=== PATIENT | male | born 1950 | race Caucasian/White ===

== ENCOUNTER 2021-05-31 15:09 | Emergency (ER) | payer OTHER ==
--- NOTE | 2021-05-31 15:19 | ERPHSYRPT ---
- History of Present Illness Time Seen by Provider: 05/31/21 15:14 Source: patient, EMS Exam Limitations: clinical condition Physician History: pt is a leukemia pt recently requiring transfusion for his chem effects and is also incarcerated. He became unresponsive with bradycardia down to 20s by palp pulse only =- no monitor and was given IV atropine and called ambulance. Pt now has HR around 100 and pulse Ox is in 90s on mask and pt alert and following commands. No complaints, but appears short of breath. has rales suggesting CHF. Timing/Duration: today Activities at Onset: none Quality: other (no pain) Chest Pain Radiation: no radiation Severity of Pain-Max: none Severity of Pain-Current: none Nitro Today/Relief: no nitro taken today Aspirin Treatment Today: no aspirin today Associated Symptoms: shortness of breath Allergies/Adverse Reactions: No Known Drug Allergies Allergy (Unverified 05/31/21 15:40) Home Medications: No Reportable Medications [No Reported Medications] 05/31/21 [History] - Review of Systems Constitutional: No Fever, No Chills Eyes: No Symptoms Ears, Nose, & Throat: No Symptoms Respiratory: Dyspnea, No Cough Cardiac: No Chest Pain, No Edema, No Syncope Abdominal/Gastrointestinal: No Abdominal Pain, No Nausea, No Vomiting, No Diarrhea Genitourinary Symptoms: No Dysuria Musculoskeletal: No Back Pain, No Neck Pain Skin: No Rash Neurological: No Dizziness, No Focal Weakness, No Sensory Changes Psychological: No Symptoms Endocrine: No Symptoms Hematologic/Lymphatic: No Symptoms Immunological/Allergic: No Symptoms All Other Systems: Reviewed and Negative - Past Medical History Pertinent Past Medical History: Yes 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 - Nursing Vital Signs Nursing Vital Signs: Initial Vital Signs Temperature 97.5 F 05/31/21 15:10 Pulse Rate 102 H 05/31/21 15:10 Respiratory Rate 24 05/31/21 15:10 O2 Sat by Pulse Oximetry 95 05/31/21 15:10 Pain Scale Pain Intensity 0 - Physical Exam General Appearance: no apparent distress, alert Eye Exam: PERRL/EOMI, eyes nml inspection Ears, Nose, Throat Exam: normal ENT inspection, moist mucous membranes Neck Exam: normal inspection, non-tender, supple Respiratory Exam: respiratory distress, accessory muscle use, crackles/rales Cardiovascular Exam: regular rate/rhythm, normal heart sounds, No edema Gastrointestinal/Abdomen Exam: soft, No tenderness, No mass Rectal Exam: deferred Back Exam: normal inspection, No CVA tenderness, No vertebral tenderness Extremity Exam: normal inspection, normal range of motion Neurologic Exam: alert, oriented x 3, cooperative, normal mood/affect, nml cerebellar function, sensation nml, No motor deficits Skin Exam: normal color, warm, dry Lymphatic Exam: No adenopathy SpO2 Interpretation: hypoxic SpO2: 94 O2 Delivery: Non-rebreather - Course Nursing assessment & vital signs reviewed: Yes EKG Interpreted by Me: Sinus Tach, 1st degree AV Block, Non-specific ST Changes - Radiology Exams Chest X-ray Interpretation: Reviewed by me, Infiltrates, Other (enlarged heart/CHF/pericadial effusion?) Ordered Tests: Active Orders 24 hr Category Date Time Status Patient Support Assistant STAT Care 05/31/21 15:43 Active EKG-ER Only STAT Care 05/31/21 15:23 Active IV Insertion STAT Care 05/31/21 15:23 Active Pulse Oximetry (ED) STAT Care 05/31/21 15:25 Active CHEST 1 VIEW (PORTABLE) Stat Exams 05/31/21 16:36 Taken CBC W DIFF Stat Lab 05/31/21 15:35 Completed CMP Stat Lab 05/31/21 15:35 Completed INFLUENZA A+B BHAVIN Stat Lab 05/31/21 15:26 Completed Lactic Acid Stat Lab 05/31/21 15:47 Completed Manual Differential NC Stat Lab 05/31/21 15:35 Completed NT PRO BNP Stat Lab 05/31/21 15:42 Completed TROPONIN Q3H Lab 05/31/21 15:35 Completed TROPONIN Q3H Lab 05/31/21 18:30 Ordered TROPONIN Q3H Lab 05/31/21 21:30 Ordered TROPONIN Q3H Lab 06/01/21 00:30 Ordered TROPONIN Q3H Lab 06/01/21 03:30 Ordered UA W/RFX UR CULTURE Stat Lab 05/31/21 15:24 Ordered Respiratory Therapy Assessment DAILY RT 05/31/21 15:38 Active Medication Summary Generic Name Dose Route Start Last Admin Trade Name Freq PRN Reason Stop Dose Admin Sodium Chloride 1,000 mls @ 100 mls/hr 05/31/21 15:30 Sodium Chloride 0.9% 1000 Ml IV 06/30/21 15:29 .Q10H DAVID Discontinued Medications Generic Name Dose Route Start Last Admin Trade Name Freq PRN Reason Stop Dose Admin Albuterol/Ipratropium 3 ml 05/31/21 15:25 05/31/21 15:34 Ipratropium/Albuterol Sulfate 3 Ml Ampul.Neb IH 05/31/21 15:26 3 ml STAT ONE Administration Albuterol/Ipratropium Confirm 05/31/21 15:33 Ipratropium/Albuterol Sulfate 3 Ml Ampul.Neb Administered 05/31/21 15:34 Dose 3 ml IH .STK-MED ONE Furosemide 20 mg 05/31/21 15:29 Furosemide 100 Mg/10 Ml Vial IV 05/31/21 15:30 STAT ONE Dopamine HCl/Dextrose 250 mls @ 0 mls/hr 05/31/21 15:42 Dopamine 400 Mg/D5w 250ml Premix IV 06/30/21 15:41 .Q0M PRN SEVERE HYPOTENSION Protocol 5 MCG/KG/MIN Dopamine HCl/Dextrose Confirm 05/31/21 15:54 Dopamine 400 Mg/D5w 250ml Premix Administered 05/31/21 15:55 Dose 250 mls @ ud IV .STK-MED ONE Lab/Rad Data: Laboratory Result Diagrams 05/31/21 15:35 05/31/21 15:35 Laboratory Results 05/31/21 05/31/21 05/31/21 Range/Units 15:47 15:42 15:35 WBC (4.0-10.5) K/mm3 RBC (4.1-5.6) M/mm3 Hgb (12.5-18.0) gm/dl Hct (42-50) % MCV (78-100) fl MCH (26-32) pg MCHC (32-36) g/dl RDW (11.5-14.0) % Plt Count (150-450) K/mm3 MPV (7.5-11.0) fl Sodium (137-145) mmol/L Potassium (3.5-5.1) mmol/L Chloride (98-107) mmol/L Carbon Dioxide (22-30) mmol/L Anion Gap (5-15) MEQ/L BUN (9-20) mg/dL Creatinine (0.66-1.25) mg/dL Estimated GFR ML/MIN Glucose (74-106) mg/dL Lactic Acid 6.0 H (0.4-2.0) Calcium (8.4-10.2) mg/dL Total Bilirubin (0.2-1.3) mg/dL AST (17-59) U/L ALT (0-50) U/L Alkaline Phosphatase (38-126) U/L Troponin I 0.056 H* (0.000-0.034) ng/mL NT-Pro-B Natriuret Pep 20083 H (0-900) pg/mL Serum Total Protein (6.3-8.2) g/dL Albumin (3.5-5.0) g/dL Influenza Type A Ag (NEGATIVE) Influenza Type B Ag (NEGATIVE) 05/31/21 05/31/21 05/31/21 Range/Units 15:35 15:35 15:26 WBC 4.7 (4.0-10.5) K/mm3 RBC 2.51 L (4.1-5.6) M/mm3 Hgb 8.7 L (12.5-18.0) gm/dl Hct 27.1 L (42-50) % MCV 108.0 H (78-100) fl MCH 34.7 H (26-32) pg MCHC 32.1 (32-36) g/dl RDW 23.2 H (11.5-14.0) % Plt Count 134 L (150-450) K/mm3 MPV 10.6 (7.5-11.0) fl Sodium 138 (137-145) mmol/L Potassium 5.3 H (3.5-5.1) mmol/L Chloride 108 H (98-107) mmol/L Carbon Dioxide 17 L (22-30) mmol/L Anion Gap 17.8 H (5-15) MEQ/L BUN 46 H (9-20) mg/dL Creatinine 3.52 H (0.66-1.25) mg/dL Estimated GFR 18.4 ML/MIN Glucose 116 H (74-106) mg/dL Lactic Acid (0.4-2.0) Calcium 7.8 L (8.4-10.2) mg/dL Total Bilirubin 0.80 (0.2-1.3) mg/dL AST 59 (17-59) U/L ALT 70 H (0-50) U/L Alkaline Phosphatase 52 (38-126) U/L Troponin I (0.000-0.034) ng/mL NT-Pro-B Natriuret Pep (0-900) pg/mL Serum Total Protein 6.5 (6.3-8.2) g/dL Albumin 3.2 L (3.5-5.0) g/dL Influenza Type A Ag NEGATIVE (NEGATIVE) Influenza Type B Ag NEGATIVE (NEGATIVE) - Progress Progress: improved, re-examined Air Movement: good Progress Note: 05/31/21 17:13 discussed with pt and Dr. Contreras and all agree for transfer to [facility] for definitive eval of heart and care , so that pt can decide next steps. Blood Culture(s) Obtained: No Antibiotics given: No Discussed with DrAn: Other (Dr. Dodge [facility]) Will see patient in: ED Counseled pt/family regarding: lab results, diagnosis, need for follow-up, rad results - Departure Departure Disposition: Transfer Clinical Impression: leukemia under Tx, CHF/pericardial enlargment Condition: Serious Critical Care Time: Yes Critical Care Time(excluding separately billable procedures): Critical 30-74 mins (60 minutes CC time for low BP) [facility] [[facility] - Follow up/PCP as directed
[2021-05-31] MEDS ORDERED: DUONEB 0.5-3 MG/3 ml Neb IH ONE ×2 (15:25→15:33)
[2021-05-31] MEDS ORDERED: Furosemide 100mg/10 ml Vial IV ONE (15:29)
[2021-05-31] MEDS ORDERED: Sodium Chloride 0.9% 1000 ML 1,000 ML IV SCH (15:30)
[2021-05-31] MEDS ORDERED: Dopamine 400 MG/D5W 250ML PREMIX 250 ML IV PRN (15:42)
[2021-05-31 15:43] LABS: Hematocrit 27.1 % (42-50); Hemoglobin 8.7 gm/dl (12.5-18.0); Mean Corpuscular Hemoglobin 34.7 pg (26-32); Mean Corpuscular Hgb Concent. 32.1 g/dl (32-36); Mean Platelet Volume 10.6 fl (7.5-11.0); Platelet Count 134 K/mm3 (150-450); Red Blood Count 2.51 M/mm3 (4.1-5.6); Red Cell Distribution Width 23.2 % (11.5-14.0); White Blood Count 4.7 K/mm3 (4.0-10.5)
[2021-05-31] MEDS ORDERED: Dopamine 400 MG/D5W 250ML PREMIX 250 ML IV ONE (15:54)
[2021-05-31 15:56] LABS: ALBUMIN 3.2 g/dL (3.5-5.0); ANION GAP 17.8 MEQ/L (5-15); BILIRUBIN,TOTAL 0.8 mg/dL (0.2-1.3); Calcium 7.8 mg/dL (8.4-10.2); Creatinine 1 3.52 mg/dL (0.66-1.25); EST GLOMERULAR FILTRATION RATE 18.4 ML/MIN; Potassium 5.3 mmol/L (3.5-5.1); Total Protein 6.5 g/dL (6.3-8.2)
[2021-05-31 16:19] LABS: INFLUENZA A NEGATIVE (NEGATIVE); INFLUENZA B NEGATIVE (NEGATIVE)
[2021-05-31 17:56] VITALS: BP 78/50; PULSE 103; O2SAT 96
[2021-05-31 19:11] LABS: ANISOCYTOSIS 1+; BAND 10 % (0.0-2.0); Dohle Bodies 1+; Lymphocytes 54 % (24-44); Macrocytosis 1+; Metamyelocyte 6 %; Monocyte 19 % (0.0-12.0); Neutrophils 10 % (36.-66.); Platelet Estimate NORMAL (NORMAL); Polychromasia 1+; Total Cells Counted 100
--- NOTE | 2021-05-31 19:27 | XRAY ---
Indication: Short of breath. History leukemia. Comparison: None Portable chest demonstrates cardiomegaly, pulmonary edema, and small bibasilar effusions favoring cardiac decompensation/CHF. Suspect bulky right hilar lymphadenopathy presumed related to patient's leukemia. Bony thorax intact with mild degenerative changes. Impression: 1. Radiographic features favoring cardiac decompensation/CHF. Superimposed pneumonia not completely excluded. 2. Bulky right hilar lymphadenopathy presumed related to patient's leukemia.
== END 2021-05-31 17:35 | disposition short-term general hospital (02) ==
LOC: EEVIPCON 15:09 → ED 15:09
DX: I50.9 Heart failure, unspecified (principal); C95.90 Leukemia, unspecified not having achieved remission; R00.1 Bradycardia, unspecified
CPT/HCPCS: 36000; 36415; 71045; 80053; 83605; 83880; 84484; 85025; 87400; 93005; 93041; 94640; 94760; 99285; 99291; J1265; A9270-GY